=== PATIENT | female | born 1975 | race Caucasian/White ===

== ENCOUNTER 2018-08-30 17:46 | Emergency (ER) | payer OTHER ==
[2018-08-30 17:54] VITALS: BP 99/62; PULSE 72; RESP 18; TEMP 97.5; O2SAT 98
[2018-08-30] MEDS ORDERED: Amoxicillin-Clav 875-125 mg Tab PO STA (19:22)
[2018-08-30] MEDS ORDERED: Amoxicillin-Clav 875-125 mg Tab PO ONE (19:37)
--- NOTE | 2018-08-30 19:42 | C.PDOC ---
History Of Present Illness 43 y/o female pt presents to the ER c/o pain and swelling of left breast for x3 days. Pt states that she currently is breast feeding but no milk is coming through the left nipple. Pt took motrin for pain. Pt denies fever or trauma. Time Seen by Provider: 08/30/18 19:14 Chief Complaint (Nursing): Breast Problem History Per: Patient History/Exam Limitations: no limitations Onset/Duration Of Symptoms: Days (x3) Current Symptoms Are (Timing): Still Present Past Medical History Reviewed: Historical Data, Nursing Documentation, Vital Signs Vital Signs: Last Vital Signs Temp 97.5 F L 08/30/18 17:52 Pulse 72 08/30/18 17:52 Resp 18 08/30/18 17:52 BP 99/62 L 08/30/18 17:52 Pulse Ox 98 08/30/18 17:52 Surgical History: Appendectomy Family History: States: No Known Family Hx - Social History Hx Alcohol Use: No Hx Substance Use: No - Immunization History Hx Tetanus Toxoid Vaccination: No Hx Influenza Vaccination: No Hx Pneumococcal Vaccination: No Review Of Systems Except As Marked, All Systems Reviewed And Found Negative. Constitutional: Negative for: Fever, Other (trauma ) Musculoskeletal: Positive for: Other (pain and swelling to left breast; unable to produce milk ) Physical Exam - Physical Exam Appears: Non-toxic, No Acute Distress Skin: Warm, Dry, No Rash Head: Normacephalic Eye(s): bilateral: Normal Inspection Chest: Tenderness (tenderness to left breast and nipple with swelling to left nipple), Other (no erythema, no skin changes, no palpable mass; right breast normal ) Cardiovascular: Rhythm Regular Respiratory: Normal Breath Sounds Gastrointestinal/Abdominal: Soft, No Tenderness Neurological/Psych: Oriented x3, Normal Speech, Normal Cognition Gait: Steady ED Course And Treatment O2 Sat by Pulse Oximetry: 98 (RA) Pulse Ox Interpretation: Normal Progress Note: Plans: --PO augmentin. Motrin. Pt is advised to f/u with PMD or ER in 1-2 days for reevaluation Disposition - Disposition Referrals: [facility] [Outside] Disposition: HOME/ ROUTINE Disposition Time: 19:39 Condition: STABLE Additional Instructions: Please follow up with PMD / or Ob GYNE or ER in 2 days for follow up Pump breasts and get rid of milk until you finish all antibiotics Continue motrin for pain Return to ER if worse Prescriptions: Amoxicillin/Clavulanate [Augmentin 875 MG-125 MG] 1 tab PO BID #14 tab Instructions: Mastitis (DC), Breast Care for the Breast Feeding Mother (ED) Forms: [facility] (Hungarian) - Clinical Impression Clinical Impression: Mastitis in female, Pain of breast - PA / [employer] / Resident Statement MD/ has reviewed & agrees with the documentation as recorded. - Scribe Statement The provider has reviewed the documentation as recorded by the Govind Martinez Do All medical record entries made by the Govind were at my direction and personally dictated by me. I have reviewed the chart and agree that the record accurately reflects my personal performance of the history, physical exam, medical decision making, and the department course for this patient. I have also personally directed, reviewed, and agree with the discharge instructions and disposition.
== END 2018-08-30 19:49 | disposition home or self-care (01) ==
LOC: C.ER 17:46
DX: N61.0 Mastitis without abscess (principal); N64.4 Mastodynia